=== PATIENT | female | born 1975 | race African-American/Black ===

== ENCOUNTER 2019-07-27 03:47 | Emergency (ER) | payer OTHER ==
[2019-07-27] MEDS ORDERED: ALBUTEROL 2.5 MG/3 ML NEB SOL ONE (04:39)
[2019-07-27] MEDS ORDERED: IPRATROPIUM BROM 0.5MG/2.5ML ONE (04:40)
--- NOTE | 2019-07-27 06:04 | ER ---
Nurse's Notes [facility] [place] Name: Gloria Pickard Age: 44 yrs Sex: Female : 1975 Arrival Date: 07/27/2019 Time: 03:48 Bed 17 Private MD: Diagnosis: Acute bronchospasm;Bronchitis, not specified as acute or chronic Presentation: 07/27 04:18 Presenting complaint: Patient states: Reports fever, cough and congestion for the past ea two weeks. Transition of care: patient was not received from another setting of care. Onset of symptoms was July 27, 2019. Risk Assessment: Do you want to hurt yourself or someone else? Patient reports no desire to harm self or others. Initial Sepsis Screen: Does the patient meet any 2 criteria? No. Patient's initial sepsis screen is negative. Does the patient have a suspected source of infection? No. Patient's initial sepsis screen is negative. Care prior to arrival: None. 04:18 Method Of Arrival: Ambulatory ea 04:18 Acuity: JEN 4 ea Triage Assessment: 04:26 General: Appears in no apparent distress. Behavior is calm, cooperative, appropriate ea for age. Pain: Denies pain. Neuro: Level of Consciousness is awake, alert, obeys commands, Oriented to person, place, time, situation. Respiratory: Airway is patent Respiratory effort is even, unlabored, Respiratory pattern is regular, symmetrical, Breath sounds are clear bilaterally. Derm: Skin is pink, warm \T\ dry. 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 - Coronavirus screen:: The patient has NOT traveled to [place], [place], or [place] in the past 14 days. Proceed with normal triage process as indicated. - Social history:: Smoking status: Patient reports the use of cigarette tobacco products, denies chronic smoking, but will smoke occasionally. - Ebola Screening: : No symptoms or risks identified at this time. Screenin:17 Abuse screen: Denies threats or abuse. Nutritional screening: No deficits noted. ea Tuberculosis screening: No symptoms or risk factors identified. Fall Risk None identified. Assessment: 04:26 Reassessment: see triage assesment. ea 05:14 Reassessment: Patient and/or family updated on plan of care and expected duration. Pain ea level reassessed. Patient is alert, oriented x 3, equal unlabored respirations, skin warm/dry/pink. 06:11 Reassessment: Patient and/or family updated on plan of care and expected duration. Pain ea level reassessed. Patient is alert, oriented x 3, equal unlabored respirations, skin warm/dry/pink. Discharge instruction given to patient, verbalized the understanding of instruction. Pt left ED ambulatory tolerated well. Vital Signs: 04:19 BP 160 / 97; Pulse 75; Resp 18; Temp 98; Pulse Ox 98% on R/A; Weight 74.84 kg; Height 5 ea ft. 2 in. (157.48 cm); 04:19 Body Mass Index 30.18 (74.84 kg, 157.48 cm) ea ED Course: 03:48 Patient arrived in ED. ds1 04:16 Dustin Dow MD is Attending Physician. tw4 04:17 Gladis Enriquez, RN is Primary Nurse. ea 04:18 Patient has correct armband on for positive identification. Placed in gown. Bed in low ea position. Call light in reach. 04:19 Triage completed. ea 04:25 Arm band placed on right wrist. Patient placed in an exam room, on a stretcher, on ea pulse oximetry. 05:13 No provider procedures requiring assistance completed. Patient admitted, IV remains in ea place. Administered Medications: 04:42 Drug: DuoNeb (3:1) (2.5 mg - 0.5 mg) 3 ml Route: Nebulizer; ea 05:28 Follow up: Response: No adverse reaction ea Outcome: 06:02 Discharge ordered by . tw4 06:12 Discharged to home ambulatory. ea 06:12 Condition: stable 06:12 Discharge instructions given to patient, Instructed on discharge instructions, follow up and referral plans. medication usage, Demonstrated understanding of instructions, follow-up care, medications, Prescriptions given X 4. 06:14 Patient left the ED. ea Signatures: Shayy Colby ds1 Gladis Enriquez RN RN Dustin Ayala MD MD tw4
--- NOTE | 2019-07-27 06:05 | EDPHYS ---
Physician Documentation [facility] [place] Name: Gloria Pickard Age: 44 yrs Sex: Female : 1975 Arrival Date: 07/27/2019 Time: 03:48 Bed 17 Private MD: ED Physician Dustin Dow HPI: 07/27 05:11 This 44 yrs old Black Female presents to ER via Ambulatory with complaints of Fever, tw4 Congestion. 05:11 The patient reports fever, not measured (subjective). Onset: The symptoms/episode tw4 began/occurred 2 week(s) ago. Modifying factors: there are no obvious modifying factors. Associated signs and symptoms: Pertinent positives:. Severity of symptoms: At their worst the symptoms were mild in the emergency department the symptoms are unchanged. The patient has not experienced similar symptoms in the past. 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 - Coronavirus screen:: The patient has NOT traveled to [place], [place], or [place] in the past 14 days. Proceed with normal triage process as indicated. - Social history:: Smoking status: Patient reports the use of cigarette tobacco products, denies chronic smoking, but will smoke occasionally. - Ebola Screening: : No symptoms or risks identified at this time. ROS: 05:11 ENT: Negative for injury, pain, and discharge, Neck: Negative for injury, pain, and tw4 swelling, Cardiovascular: Negative for chest pain, palpitations, and edema. 05:11 Abdomen/GI: Negative for abdominal pain, nausea, vomiting, diarrhea, and constipation, Back: Negative for injury and pain, MS/Extremity: Negative for injury and deformity, Skin: Negative for injury, rash, and discoloration, Neuro: Negative for headache, weakness, numbness, tingling, and seizure. 05:11 Constitutional: Positive for fever, Negative for body aches, chills, fatigue. 05:11 Respiratory: Positive for cough, wheezing. Exam: 05:11 Constitutional: This is a well developed, well nourished patient who is awake, alert, tw4 and in no acute distress. Head/Face: Normocephalic, atraumatic. Chest/axilla: Normal chest wall appearance and motion. Nontender with no deformity. No lesions are appreciated. Cardiovascular: Regular rate and rhythm with a normal S1 and S2. No gallops, murmurs, or rubs. Normal PMI, no JVD. No pulse deficits. Respiratory: Lungs have equal breath sounds bilaterally, clear to auscultation and percussion. No rales, rhonchi or wheezes noted. No increased work of breathing, no retractions or nasal flaring. Abdomen/GI: Soft, non-tender, with normal bowel sounds. No distension or tympany. No guarding or rebound. No evidence of tenderness throughout. Back: No spinal tenderness. No costovertebral tenderness. Full range of motion. MS/ Extremity: Pulses equal, no cyanosis. Neurovascular intact. Full, normal range of motion. Neuro: Awake and alert, GCS 15, oriented to person, place, time, and situation. Cranial nerves II-XII grossly intact. Motor strength 5/5 in all extremities. Sensory grossly intact. Cerebellar exam normal. Normal gait. Vital Signs: 04:19 BP 160 / 97; Pulse 75; Resp 18; Temp 98; Pulse Ox 98% on R/A; Weight 74.84 kg; Height 5 ea ft. 2 in. (157.48 cm); 04:19 Body Mass Index 30.18 (74.84 kg, 157.48 cm) ea MDM: 04:19 Patient medically screened. tw4 06:00 Differential diagnosis: viral Infection, bacterial infection, URI, bronchitis. Data tw4 reviewed: vital signs, nurses notes. Data reviewed: lab test result(s), Flu: negative. Data interpreted: Pulse oximetry: Interpretation: normal. Counseling: I had a detailed discussion with the patient and/or guardian regarding: the historical points, exam findings, and any diagnostic results supporting the discharge/admit diagnosis, lab results. Medication response: albuterol nebulizer treatment(s) markedly relieved the patient's wheezing. Response to treatment: the patient's symptoms have markedly improved after treatment, and as a result, I will discharge patient. 07/27 04:20 Order name: Flu tw4 07/27 05:56 Order name: Influenza Screen (A EDTX 07/27 04:20 Order name: CXR XRAY tw4 Administered Medications: 04:42 Drug: DuoNeb (3:1) (2.5 mg - 0.5 mg) 3 ml Route: Nebulizer; ea 05:28 Follow up: Response: No adverse reaction ea Disposition: 07/27/19 06:02 Discharged to Home. Impression: Acute bronchospasm, Bronchitis, not specified as acute or chronic. - Condition is Stable. - Discharge Instructions: Acute Bronchitis, Adult, Bronchospasm, Adult, How to Use an Inhaler, Upper Respiratory Infection, Adult, Cough, Adult. - Prescriptions for Tessalon Perles 100 mg Oral Capsule - take 1 capsule by ORAL route every 8 hours As needed; 15 capsule. Medrol (Santhosh) 4 mg Oral Tablets, Dose Pack - take 1 tablet by ORAL route as directed - follow package instructions; 1 packet. Albuterol Sulfate 90 mcg/actuation - inhale 1-2 puff by INHALATION route every 4-6 hours; 1 Inhaler. Guaifenesin AC 10- 100 mg/5 mL Oral Liquid - take 10 milliliter by ORAL route every 4 hours As needed; 240 milliliter. - Work release form, Medication Reconciliation Form, Thank You Letter, Antibiotic Education, Prescription Opioid Use form. - Follow up: Private Physician; When: Upon discharge from the Emergency Department; Reason: If symptoms return, Recheck today's complaints, Continuance of care, Re-evaluation by your physician. - Problem is new. - Symptoms have improved. Signatures: Dispatcher [employer] [facility] Gladis Enriquez RN RN ea Wadley, Terrence, MD MD tw4 Corrections: (The following items were deleted from the chart) 06:14 06:02 07/27/2019 06:02 Discharged to Home. Impression: Acute bronchospasm; Bronchitis, ea not specified as acute or chronic. Condition is Stable. Forms are Medication Reconciliation Form, Thank You Letter, Antibiotic Education, Prescription Opioid Use. Follow up: Private Physician; When: Upon discharge from the Emergency Department; Reason: If symptoms return, Recheck today's complaints, Continuance of care, Re-evaluation by your physician. Problem is new. Symptoms have improved. tw4
[2019-07-27 06:32] VITALS: BP 160/97; TEMP 98; O2SAT 98
--- NOTE | 2019-07-27 07:57 | RAD REPORT ---
EXAM DESCRIPTION: Devyn Single View07/27/2019 5:09 am CLINICAL HISTORY: Fever COMPARISON: none FINDINGS: The lungs appear clear of acute infiltrate. The heart is normal size IMPRESSION: No acute abnormalities displayed
== END 2019-07-27 06:14 | disposition home or self-care (01) ==
LOC: ER 03:47
DX: J40 Bronchitis, not specified as acute or chronic (principal); J98.01 Acute bronchospasm; F17.210 Nicotine dependence, cigarettes, uncomplicated; I10 Essential (primary) hypertension; Z98.82 Breast implant status
CPT/HCPCS: 71045; 87804; 94640; 99284

== ENCOUNTER 2019-08-02 23:26 | Emergency (ER) | payer OTHER ==
[2019-08-02] MEDS ORDERED: ALBUTEROL 2.5 MG/3 ML NEB SOL ONE (23:55)
[2019-08-02] MEDS ORDERED: IPRATROPIUM BROM 0.5MG/2.5ML ONE (23:55)
[2019-08-03] MEDS ORDERED: NA CHLORIDE 0.9% 250 ML ONE (00:03)
[2019-08-03] MEDS ORDERED: METHYLPREDNISOLONE 125 MG INJ ONE (00:03)
[2019-08-03] MEDS ORDERED: AZITHROMYCIN 500 MG INJ IVPB ONE (00:03)
[2019-08-03 00:27] LABS: Absolute Lymphocytes (CBC) 2.8 K/uL (0.7-4.9); Basophils % 0.4 % (0-1.3); Hematocrit 45.1 % (36.0-45.0); MPV 10.5 fL (7.6-11.3); RBC Red Blood Cell Count 4.61 M/uL (3.86-4.86)
[2019-08-03 00:29] LABS: Protime INR 0.89
[2019-08-03 00:39] LABS: ALT/SGPT 23 U/L (12-78); AST/SGOT 22 U/L (15-37); Albumin 3.8 g/dL (3.4-5.0); Alkaline Phosphatase 41 U/L (45-117); BUN Blood Urea Nitrogen 14 mg/dL (7-18); Bicarbonate 29 mmol/L (21-32); Bilirubin Direct < 0.1 mg/dL (0-0.2); Bilirubin Total 0.6 mg/dL (0.2-1.0); CKMB Creatine Kinase MB 1.9 ng/mL (0.3-3.6); Creatine Phosphokinase 110 U/L (26-192); Glucose Level 94 mg/dL (74-106); Lipase 108 U/L (73-393); Magnesium 1.8 mg/dL (1.8-2.4); NT PRO-BNP 131 pg/mL (<125); Potassium 3.5 mmol/L (3.5-5.1); Protein, Total 7.6 g/dL (6.4-8.2); Sodium Level 139 mmol/L (136-145); Troponin (Emerg Dept Use Only) < 0.02 ng/mL (0.0-0.045)
--- NOTE | 2019-08-03 00:51 | ER ---
Nurse's Notes [facility] Name: Gloria Pickard Age: 44 yrs Sex: Female : 1975 Arrival Date: 08/02/2019 Time: 23:30 Bed 15 Private MD: Diagnosis: Acute bronchitis Presentation: 08/02 23:36 Presenting complaint: Patient states: COMPLAINING OF COUGH FOR THREE DAYS WITH rv YELLOWISH DISCHARGE, AND NAUSEA AND VOMITING, AND FEVER. TODAY COUGHING OUT BLOOD TINGE PHLEGM. Transition of care: patient was not received from another setting of care. Onset of symptoms was August 01, 2019 at 08:00. Risk Assessment: Do you want to hurt yourself or someone else? Patient reports no desire to harm self or others. Initial Sepsis Screen: Does the patient meet any 2 criteria? No. Patient's initial sepsis screen is negative. Does the patient have a suspected source of infection? No. Patient's initial sepsis screen is negative. Care prior to arrival: None. 23:36 Method Of Arrival: Ambulatory rv 23:36 Acuity: JEN 3 rv Triage Assessment: 23:49 General: Appears in no apparent distress. Behavior is calm, cooperative, Smells of. rv Respiratory: Onset: The symptoms/episode began/occurred yesterday, the patient has mild shortness of breath. Respiratory: Breath sounds with wheezes bilaterally. 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 - Coronavirus screen:: The patient has NOT traveled to [place] in the past 14 days. Proceed with normal triage process as indicated. The patient has NOT had contact with known/suspected case of Coronavirus? Proceed with normal triage procedures. - Social history:: Patient/guardian denies using alcohol, street drugs, The patient lives with spouse, Smoking status: Patient reports the use of cigarette tobacco products, denies chronic smoking, but will smoke occasionally. - Family history:: not pertinent. - Ebola Screening: : No symptoms or risks identified at this time. Screenin:49 Abuse screen: Denies threats or abuse. Denies injuries from another. Nutritional rv screening: No deficits noted. Tuberculosis screening: No symptoms or risk factors identified. Fall Risk None identified. Assessment: 23:48 General: Appears in no apparent distress. comfortable. Pain: Denies pain. Neuro: Level rv of Consciousness is awake, alert, obeys commands, Oriented to person, place, time, situation. Cardiovascular: Patient's skin is warm and dry. Rhythm is regular. Respiratory: Airway is patent Respiratory effort is even, Breath sounds with wheezes bilaterally. GI: Reports nausea, vomiting. Vital Signs: 23:41 BP 179 / 100; Pulse 87; Resp 18; Temp 98.2; Pulse Ox 96% on R/A; Weight 74.84 kg; rv Height 5 ft. 2 in. (157.48 cm); 08/03 01:36 BP 165 / 96; Pulse 86; Resp 16; Pulse Ox 97% on R/A; rv 08/02 23:41 Body Mass Index 30.18 (74.84 kg, 157.48 cm) rv ED Course: 08/02 23:30 Patient arrived in ED. es 23:30 Seth Brantley, JESSICA is Primary Nurse. rv 23:34 Letha Menjivar MD is Attending Physician. ma2 23:41 Triage completed. rv 23:48 Arm band placed on Patient placed Patient notified of wait time. rv 23:49 Patient has correct armband on for positive identification. cardiac monitor on. Pulse rv ox on. NIBP on. 23:50 Inserted saline lock: 20 gauge in left forearm, using aseptic technique. Blood rv collected. 08/03 00:05 Initial lab(s) drawn, by ED staff, sent to lab. First set of blood cultures drawn by ED rv staff, Second set of blood cultures drawn by ED staff. 01:26 XRAY CXR (1 view) In Process Unspecified. EDMS 01:36 No provider procedures requiring assistance completed. IV discontinued, intact, rv bleeding controlled, No redness/swelling at site. Pressure dressing applied. Administered Medications: 08/02 23:45 Drug: AtroVENT Aerosol 0.5 mg Route: Inhalation; rv 08/03 01:38 Follow up: Response: No adverse reaction; Marked relief of symptoms rv 08/02 23:45 Drug: Albuterol 2.5 mg Route: Inhalation; rv 08/03 01:38 Follow up: Response: No adverse reaction; Marked relief of symptoms rv 08/02 23:45 Drug: Albuterol 2.5 mg Route: Inhalation; rv 23:45 Drug: Albuterol 2.5 mg Route: Inhalation; rv 23:55 Drug: SOLU-Medrol 125 mg Route: IVP; Site: left forearm; rv 08/03 00:11 Drug: AZITHromycin 500 mg Route: IVPB; Infused Over: 1 hrs; Site: left forearm; rv 01:38 Follow up: IV Status: Completed infusion; IV Intake: 250ml rv Intake: 01:38 IV: 250ml; Total: 250ml. rv Outcome: 00:46 Discharge ordered by . amanda 01:37 Discharged to home ambulatory. rv 01:37 Condition: improved 01:37 Discharge instructions given to patient, Instructed on discharge instructions, follow up and referral plans. medication usage, Demonstrated understanding of instructions, follow-up care, medications, Prescriptions given X 4. 01:39 Patient left the ED. rv Signatures: Dispatcher [employer] Jennifer Hewitt Mohammad, MD MD ma2 Vicente, Ronaldo RN RN rv
--- NOTE | 2019-08-03 00:54 | EDPHYS ---
Physician Documentation [facility] [place] Name: Gloria Pickard Age: 44 yrs Sex: Female : 1975 Arrival Date: 08/02/2019 Time: 23:30 Bed 15 Private MD: ED Physician Letha Menjivar HPI: 08/03 00:44 This 44 yrs old Black Female presents to ER via Ambulatory with complaints of Shortness ma2 Of Breath. 00:44 The patient has shortness of breath with light activity. Onset: The symptoms/episode ma2 began/occurred gradually, 2 day(s) ago. Duration: The symptoms are chronic, are continuous. Associated signs and symptoms: Pertinent negatives: diaphoresis, fever, nausea. Severity of symptoms: At their worst the symptoms were mild in the emergency department the symptoms are unchanged. The patient has not experienced similar symptoms in the past. 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 - Coronavirus screen:: The patient has NOT traveled to [place] in the past 14 days. Proceed with normal triage process as indicated. The patient has NOT had contact with known/suspected case of Coronavirus? Proceed with normal triage procedures. - Social history:: Patient/guardian denies using alcohol, street drugs, The patient lives with spouse, Smoking status: Patient reports the use of cigarette tobacco products, denies chronic smoking, but will smoke occasionally. - Family history:: not pertinent. - Ebola Screening: : No symptoms or risks identified at this time. ROS: 08/03 00:44 Constitutional: Negative for fever, chills, and weight loss. ma2 All other systems are negative. Exam: 00:44 Constitutional: This is a well developed, well nourished patient who is awake, alert, ma2 and in no acute distress. Chest/axilla: wheezes diffuse expiratory, otherwise Normal chest wall appearance and motion. Nontender with no deformity. No lesions are appreciated. Cardiovascular: Regular rate and rhythm with a normal S1 and S2. No gallops, murmurs, or rubs. Normal PMI, no JVD. No pulse deficits. Respiratory: Lungs have equal breath sounds bilaterally, clear to auscultation and percussion. No rales, rhonchi or wheezes noted. No increased work of breathing, no retractions or nasal flaring. Abdomen/GI: Soft, non-tender, with normal bowel sounds. No distension or tympany. No guarding or rebound. No evidence of tenderness throughout. MS/ Extremity: Pulses equal, no cyanosis. Neurovascular intact. Full, normal range of motion. Neuro: Awake and alert, GCS 15, oriented to person, place, time, and situation. Cranial nerves II-XII grossly intact. Motor strength 5/5 in all extremities. Sensory grossly intact. Cerebellar exam normal. Normal gait. 00:44 Respiratory: Lungs have equal breath sounds bilaterally, clear to auscultation and ma2 percussion. No rales, rhonch, + bilat wheeze. No increased work of breathing, no retractions or nasal flaring. Vital Signs: 08/02 23:41 BP 179 / 100; Pulse 87; Resp 18; Temp 98.2; Pulse Ox 96% on R/A; Weight 74.84 kg; rv Height 5 ft. 2 in. (157.48 cm); 08/03 01:36 BP 165 / 96; Pulse 86; Resp 16; Pulse Ox 97% on R/A; rv 08/02 23:41 Body Mass Index 30.18 (74.84 kg, 157.48 cm) rv MDM: 08/02 23:34 Patient medically screened. ma2 08/03 00:44 Differential diagnosis: Anemia Anxiety Reaction asthma, pneumonia, reactive airway ma2 disease, Sepsis. Data reviewed: vital signs, nurses notes. Counseling: I had a detailed discussion with the patient and/or guardian regarding: the historical points, exam findings, and any diagnostic results supporting the discharge/admit diagnosis, the presence of at least one elevated blood pressure reading (>120/80) during this emergency department visit, the need for outpatient follow up. 08/02 23:50 Order name: Blood Culture Adult (2) ia2 08/02 23:50 Order name: BMP ia2 08/02 23:50 Order name: CBC with Diff ia2 08/02 23:50 Order name: Ckmb [facility] 08/02 23:50 Order name: CPK ia2 08/02 23:50 Order name: D-Dimer ia2 08/02 23:50 Order name: Hepatic Function ia2 08/02 23:50 Order name: Lipase [facility] 08/02 23:50 Order name: Magnesium [facility] 08/02 23:50 Order name: NT PRO-BNP [facility] 08/02 23:50 Order name: PT-INR [facility] 08/02 23:50 Order name: Ptt, Activated [facility] 08/02 23:50 Order name: Troponin (emerg Dept Use Only) [facility] 08/02 23:50 Order name: Flu [facility] 08/02 23:50 Order name: XRAY CXR (1 view) ia2 08/03 00:40 Order name: CBC with Automated Diff; Complete Time: 00:43 EDMS 08/03 00:42 Order name: Basic Metabolic Panel; Complete Time: 00:43 EDMS 08/03 00:42 Order name: Liver (Hepatic) Function; Complete Time: 00:43 EDMS 08/03 00:43 Order name: Creatine Phosphokinase; Complete Time: 00:43 EDMS 08/03 00:43 Order name: CKMB Creatine Kinase MB; Complete Time: 00:43 EDMS 08/03 00:43 Order name: Troponin (Emerg Dept Use Only) EDMS 08/03 00:43 Order name: NT PRO-BNP EDMS 08/03 00:43 Order name: Magnesium EDMS 08/03 00:43 Order name: Lipase EDMS 08/03 00:43 Order name: Protime (+INR) EDMS 08/03 00:43 Order name: PTT, Activated Partial Thromb EDMS 08/03 00:43 Order name: D-Dimer EDMS 08/03 00:44 Order name: Influenza Screen (A EDPA 08/02 23:50 Order name: EKG; Complete Time: 23:52 ia2 08/02 23:50 Order name: Cardiac monitoring; Complete Time: 00:06 ia2 08/02 23:50 Order name: EKG - Nurse/Tech; Complete Time: 00:23 ia2 08/02 23:50 Order name: IV Saline Lock; Complete Time: 00:07 ia2 08/02 23:50 Order name: Labs collected and sent; Complete Time: 00:07 ia2 08/02 23:50 Order name: O2 Per Protocol; Complete Time: 00: ia2 08/02 23:50 Order name: O2 Sat Monitoring; Complete Time: 00: ia2 Administered Medications: 08/02 23:45 Drug: AtroVENT Aerosol 0.5 mg Route: Inhalation; rv 08/03 01:38 Follow up: Response: No adverse reaction; Marked relief of symptoms rv 08/02 23:45 Drug: Albuterol 2.5 mg Route: Inhalation; rv 08/03 01:38 Follow up: Response: No adverse reaction; Marked relief of symptoms rv 08/02 23:45 Drug: Albuterol 2.5 mg Route: Inhalation; rv 23:45 Drug: Albuterol 2.5 mg Route: Inhalation; rv 23:55 Drug: SOLU-Medrol 125 mg Route: IVP; Site: left forearm; rv 08/03 00:11 Drug: AZITHromycin 500 mg Route: IVPB; Infused Over: 1 hrs; Site: left forearm; rv 01:38 Follow up: IV Status: Completed infusion; IV Intake: 250ml rv Disposition: 08/03/19 00:46 Discharged to Home. Impression: Acute bronchitis. - Condition is Stable. - Discharge Instructions: Acute Bronchitis, Adult. - Prescriptions for Tessalon Perles 100 mg Oral Capsule - take 1 capsule by ORAL route every 8 hours As needed; 15 capsule. Zithromax Z- Santhosh 250 mg Oral Tablet - take 1 tablet by ORAL route as directed for 5 days Day 1 - take two (2) tablets one time. Day 2, 3, 4 , 5 take one (1) tablet once daily.; 6 tablet. Medrol (Santhosh) 4 mg Oral Tablets, Dose Pack - take 1 tablet by ORAL route as directed - follow package instructions; 1 packet. Albuterol Sulfate 90 mcg/actuation - inhale 1-2 puff by INHALATION route every 4-6 hours; 1 Inhaler. - Medication Reconciliation Form, Thank You Letter, Antibiotic Education, Prescription Opioid Use form. - Follow up: Private Physician; When: Tomorrow; Reason: Continuance of care. Signatures: Dispatcher [employer] Letha Denney MD MD ma2 Seth Brantley RN RN rv Corrections: (The following items were deleted from the chart) 01:39 00:46 08/03/2019 00:46 Discharged to Home. Impression: Acute bronchitis. Condition is rv Stable. Forms are Medication Reconciliation Form, Thank You Letter, Antibiotic Education, Prescription Opioid Use. Follow up: Private Physician; When: Tomorrow; Reason: Continuance of care. ma2
[2019-08-03 02:59] VITALS: TEMP 98.2
[2019-08-03 03:01] VITALS: BP 165/96; O2SAT 97
--- NOTE | 2019-08-03 08:08 | RAD REPORT ---
EXAM DESCRIPTION: Devyn Single View08/03/2019 12:12 am CLINICAL HISTORY: Congestion COMPARISON: July 27, 2019 FINDINGS: The lungs appear clear of acute infiltrate. The heart is normal size IMPRESSION: No acute abnormalities displayed
--- NOTE | 2019-08-03 08:09 | EKG ---
Test Date: 2019-08-03 Test Time: 00:21:03 Shader And Toner: VARGAS MEASUREMENT RESULTS: Intervals: Rate: 81 OR: 200 QRSD: 94 QT: 412 QTc: 478 [place]: P: 75 OR: 200 QRS: 9 T: 71 INTERPRETIVE STATEMENTS: Sinus rhythm with occasional premature ventricular complexes Nonspecific T wave abnormality Prolonged QT Abnormal ECG No previous ECG available for comparison Electronically Signed On 08-03-19 08:09:02 PROJECT MANAGER RETAIL by Brandon Isaac
== END 2019-08-03 01:39 | disposition home or self-care (01) ==
LOC: ER 23:26
DX: J40 Bronchitis, not specified as acute or chronic (principal); Z88.0 Allergy status to penicillin; I10 Essential (primary) hypertension
CPT/HCPCS: 36415; 71045; 80048; 80076; 82550; 82553; 83690; 83735; 83880; 84484; 85025; 85379; 85610; 85730; 87040; 87804; 93005; 96365; 96375; 99285

== ENCOUNTER 2019-08-03 18:25 | Emergency (ER) | payer OTHER ==
[2019-08-03] MEDS ORDERED: LEVALBUTEROL 1.25 MG/3 ML NEB ONE (19:13)
[2019-08-03] MEDS ORDERED: HYDROCODONE/CHLORPHEN 5 ML/OSYR ONE (19:14)
[2019-08-03] MEDS ORDERED: predniSONE 20 MG TAB ONE (19:14)
--- NOTE | 2019-08-03 20:50 | ER ---
Nurse's Notes [facility] [place] Name: Gloria Pickard Age: 44 yrs Sex: Female : 1975 Arrival Date: 08/03/2019 Time: 18:27 Bed 26 Private MD: Diagnosis: Essential (primary) hypertension;Bronchitis, not specified as acute or chronic Presentation: 08/03 18:38 Presenting complaint: SOB, subjective fever, and productive cough x 1 week. Seen in ED hb for same s/s last night, reports worsening SOB. Transition of care: patient was not received from another setting of care. Onset of symptoms was July 28, 2019. Risk Assessment: Do you want to hurt yourself or someone else? Patient reports no desire to harm self or others. Care prior to arrival: None. 18:38 Method Of Arrival: Ambulatory 18:38 Acuity: JEN 3 hb 19:00 Initial Sepsis Screen: Does the patient meet any 2 criteria? No. Patient's initial vc sepsis screen is negative. Does the patient have a suspected source of infection? Yes: Productive cough/pneumonia. Triage Assessment: 19:30 General: Appears in no apparent distress. uncomfortable, ill, Behavior is cooperative, vc appropriate for age, anxious. Pain: Denies pain. 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 - Coronavirus screen:: The patient has NOT traveled to [place] in the past 14 days. The patient has NOT had contact with known/suspected case of Coronavirus? Proceed with normal triage procedures. - Social history:: Smoking status: Patient reports the use of cigarette tobacco products, smokes one-half pack cigarettes per day. - Ebola Screening: : No symptoms or risks identified at this time. Screenin:00 Abuse screen: Denies threats or abuse. Nutritional screening: No deficits noted. vc Tuberculosis screening: No symptoms or risk factors identified. Fall Risk None identified. Assessment: 19:00 General: Appears in no apparent distress. uncomfortable, ill, Behavior is cooperative, vc appropriate for age, anxious. Pain: Denies pain. Neuro: Level of Consciousness is awake, alert, obeys commands, Oriented to person, place, time. Cardiovascular: Capillary refill < 3 seconds Patient's skin is warm and dry. Respiratory: Reports shortness of breath Respiratory effort is even, unlabored, Respiratory pattern is regular, symmetrical, tachypnea. GI: No signs and/or symptoms were reported involving the gastrointestinal system. : No deficits noted. EENT: Reports nasal congestion nasal discharge. Derm: Skin temperature is warm. Musculoskeletal: Circulation, motion, and sensation intact. Range of motion: intact in all extremities. 20:00 Reassessment: Patient and/or family updated on plan of care and expected duration. Pain vc level reassessed. Patient is alert, oriented x 3, equal unlabored respirations, skin warm/dry/pink. Patient denies pain at this time. Patient states feeling better. Patient states symptoms have improved. 21:11 Reassessment: Patient appears in no apparent distress at this time. Patient is alert, ca1 oriented x 3, equal unlabored respirations, skin warm/dry/pink. Vital Signs: 18:38 BP 208 / 115; Pulse 89; Resp 16; Temp 97.2; Pulse Ox 94% on R/A; Weight 74.84 kg; hb Height 5 ft. 2 in. (157.48 cm); Pain 10/10; 19:07 BP 176 / 96; Pulse 90; Resp 17; Pulse Ox 100% on R/A; vc 20:00 BP 152 / 76; Pulse 108; Resp 17; Pulse Ox 98% on R/A; vc 21:11 BP 173 / 76; Pulse 89; Resp 16 S; Pulse Ox 99% on R/A; ca1 18:38 Body Mass Index 30.18 (74.84 kg, 157.48 cm) hb ED Course: 18:27 Patient arrived in ED. ag5 18:38 Arm band placed on. hb 18:39 Triage completed. hb 18:53 Aida Crabtree, JESSICA is Primary Nurse. vc 18:55 Bakari Edgar NP is PHCP. pm1 18:55 Dustni Dow MD is Attending Physician. pm1 19:00 Patient has correct armband on for positive identification. Side rails up X2. Pulse ox vc on. NIBP on. 21:02 No provider procedures requiring assistance completed. vc 21:12 Patient did not have IV access during this emergency room visit. ca1 Administered Medications: 19:21 Drug: Xopenex (3) 1.25 mg Route: Inhalation; vc 19:21 Drug: Tussionex Pennkinetic ER 5 ml Route: PO; vc 20:00 Follow up: Response: No adverse reaction; Marked relief of symptoms vc 19:21 Drug: predniSONE 60 mg Route: PO; vc 20:00 Follow up: Response: No adverse reaction vc 21:11 Drug: TORadol 60 mg Route: IM; Site: right gluteus; ca1 21:11 Follow up: Response: Medication administered at discharge. ca1 Outcome: 20:26 Condition: improved vc 20:50 Discharge ordered by MD. pm1 21:12 Discharged to home ambulatory, with family. ca1 21:12 Condition: stable 21:12 Discharge instructions given to patient, Instructed on discharge instructions, follow up and referral plans. medication usage, Demonstrated understanding of instructions, follow-up care, medications, Prescriptions given X 1. 21:14 Patient left the ED. vc Signatures: Bakari Edgar, TECHNOLOGY AND ENGINEERING TEACHER TECHNOLOGY AND ENGINEERING TEACHER pm1 Tracy Sánchez RN RN Yin Kinney RN RN [facility] Cee Linda ag5 Aida Crabtree RN RN vc
--- NOTE | 2019-08-03 20:51 | EDPHYS ---
Physician Documentation [facility] Name: Gloria Pickard Age: 44 yrs Sex: Female : 1975 Arrival Date: 08/03/2019 Time: 18:27 Bed 26 Private MD: ED Physician Dustin Dow HPI: 08/03 19:03 This 44 yrs old Black Female presents to ER via Ambulatory with complaints of Blood pm1 Pressure Problem, Bronchitis. 19:03 The patient or guardian reports cough, difficulty breathing. pm1 19:03 Onset: The symptoms/episode began/occurred 1 week(s) ago. Severity of symptoms: in the pm1 emergency department the symptoms are actually worse. Modifying factors: the symptoms are aggravated by Not getting her prescriptions filled from visit earlier today. Associated signs and symptoms: Pertinent negatives: chest pain, fever, vomiting. The patient has been recently seen at the [facility] Emergency Department, today, for similar complaints labs were performed, X-rays were performed, prescribed steroids, cough medication, and albuterol. Patient only filled the cough medication. 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 - Coronavirus screen:: The patient has NOT traveled to [place] in the past 14 days. The patient has NOT had contact with known/suspected case of Coronavirus? Proceed with normal triage procedures. - Social history:: Smoking status: Patient reports the use of cigarette tobacco products, smokes one-half pack cigarettes per day. - Ebola Screening: : No symptoms or risks identified at this time. ROS: 19:03 Constitutional: Negative for fever, chills, and weight loss, Neck: Negative for injury, pm1 pain, and swelling, Cardiovascular: Negative for chest pain, palpitations, and edema. 19:03 Abdomen/GI: Negative for abdominal pain, nausea, vomiting, diarrhea, and constipation, Back: Negative for injury and pain, MS/Extremity: Negative for injury and deformity, Skin: Negative for injury, rash, and discoloration, Neuro: Negative for headache, weakness, numbness, tingling, and seizure. 19:03 Respiratory: Positive for cough, shortness of breath, wheezing. Exam: 19:03 Constitutional: This is a well developed, well nourished patient who is awake, alert, pm1 and in no acute distress. Head/Face: Normocephalic, atraumatic. Neck: Trachea midline, no thyromegaly or masses palpated, and no cervical lymphadenopathy. Supple, full range of motion without nuchal rigidity, or vertebral point tenderness. No Meningismus. Chest/axilla: Normal chest wall appearance and motion. Nontender with no deformity. No lesions are appreciated. Cardiovascular: Regular rate and rhythm with a normal S1 and S2. No gallops, murmurs, or rubs. Normal PMI, no JVD. No pulse deficits. 19:03 Abdomen/GI: Soft, non-tender, with normal bowel sounds. No distension or tympany. No guarding or rebound. No evidence of tenderness throughout. Back: No spinal tenderness. No costovertebral tenderness. Full range of motion. Skin: Warm, dry with normal turgor. Normal color with no rashes, no lesions, and no evidence of cellulitis. MS/ Extremity: Pulses equal, no cyanosis. Neurovascular intact. Full, normal range of motion. 19:03 Respiratory: the patient does not display signs of respiratory distress, Breath sounds: bronchial sounds, are heard in the left posterior upper lobe and right posterior upper lobe. 19:03 Neuro: Orientation: is normal, Mentation: is normal, Motor: moves all fours. Vital Signs: 18:38 BP 208 / 115; Pulse 89; Resp 16; Temp 97.2; Pulse Ox 94% on R/A; Weight 74.84 kg; hb Height 5 ft. 2 in. (157.48 cm); Pain 10/10; 19:07 BP 176 / 96; Pulse 90; Resp 17; Pulse Ox 100% on R/A; vc 20:00 BP 152 / 76; Pulse 108; Resp 17; Pulse Ox 98% on R/A; vc 21:11 BP 173 / 76; Pulse 89; Resp 16 S; Pulse Ox 99% on R/A; ca1 18:38 Body Mass Index 30.18 (74.84 kg, 157.48 cm) hb MDM: 18:55 Patient medically screened. pm1 20:48 Data reviewed: vital signs. Data interpreted: Pulse oximetry: on room air is 98 %. pm1 Interpretation: normal. Counseling: I had a detailed discussion with the patient and/or guardian regarding: the historical points, exam findings, and any diagnostic results supporting the discharge/admit diagnosis, the need for outpatient follow up, a family practitioner, to return to the emergency department if symptoms worsen or persist or if there are any questions or concerns that arise at home. Administered Medications: 19:21 Drug: Xopenex (3) 1.25 mg Route: Inhalation; vc 19:21 Drug: Tussionex Pennkinetic ER 5 ml Route: PO; vc 20:00 Follow up: Response: No adverse reaction; Marked relief of symptoms vc 19:21 Drug: predniSONE 60 mg Route: PO; vc 20:00 Follow up: Response: No adverse reaction vc 21:11 Drug: TORadol 60 mg Route: IM; Site: right gluteus; ca1 21:11 Follow up: Response: Medication administered at discharge. ca1 Disposition: 08/04 11:09 Co-signature as Attending Physician, Dustin Dow MD I agree with the assessment and tw4 plan of care. Disposition: 08/03/19 20:50 Discharged to Home. Impression: Bronchitis, not specified as acute or chronic, Essential (primary) hypertension. - Condition is Stable. - Discharge Instructions: Acute Bronchitis, Adult, Hypertension, How to Use an Inhaler, How to Take Your Blood Pressure, [id number], DASH Eating Plan, Managing Your Hypertension. - Prescriptions for Tessalon Perles 100 mg Oral Capsule - take 1 capsule by ORAL route every 8 hours As needed; 15 capsule. - Medication Reconciliation Form, Thank You Letter, Antibiotic Education, Prescription Opioid Use form. - Follow up: Emergency Department; When: As needed; Reason: Worsening of condition. Follow up: Private Physician; When: 2 - 3 days; Reason: Recheck today's complaints, Continuance of care, Re-evaluation by your physician. - Problem is new. - Symptoms have improved. Signatures: Bakari Edgar, NABOR POOL MANAGER pm1 Tracy Sánchez, RN RN Dustin Dow MD MD tw4 Ban Vaughan RN RN ls4 Yin Kinney RN RN ca1 Aida Crabtree RN RN vc Corrections: (The following items were deleted from the chart) 08/03 21:14 20:50 08/03/2019 20:50 Discharged to Home. Impression: Bronchitis, not specified as vc acute or chronicEssential (primary) hypertension. Condition is Stable. Forms are Medication Reconciliation Form, Thank You Letter, Antibiotic Education, Prescription Opioid Use. Follow up: Emergency Department; When: As needed; Reason: Worsening of condition. Follow up: Private Physician; When: 2 - 3 days; Reason: Recheck today's complaints, Continuance of care, Re-evaluation by your physician. Problem is new. Symptoms have improved. pm1
[2019-08-03] MEDS ORDERED: KETOROLAC 30 MG/ML INJ ONE (21:12)
== END 2019-08-03 21:14 | disposition home or self-care (01) ==
LOC: ER 18:25
DX: J40 Bronchitis, not specified as acute or chronic (principal); I10 Essential (primary) hypertension; Z88.0 Allergy status to penicillin
CPT/HCPCS: 96372; 99284; J7512